=== PATIENT | female | born 1970 | race Caucasian/White ===

== ENCOUNTER 2021-01-02 10:27 | Emergency (ER) | payer SELFPAY ==
[~2021-01-02] VITALS: Ht 165.1 cm; Wt 93.0 kg
== END 2021-01-02 13:20 | disposition home or self-care (01) ==
LOC: ER1 10:27
DX: U07.1 COVID-19 (principal); Z23 Encounter for immunization; I10 Essential (primary) hypertension; Z90.710 Acquired absence of both cervix and uterus; Z88.0 Allergy status to penicillin; Z88.6 Allergy status to analgesic agent; Z88.2 Allergy status to sulfonamides; Z88.8 Allergy status to other drugs, medicaments and biological substances
CPT/HCPCS: 99283; M0243